=== PATIENT | female | born 1955 | race Caucasian/White ===

== ENCOUNTER 2023-07-06 10:09 | Inpatient (IN) | payer MEDICARE, OTHER ==
[~2023-07-06] VITALS: Ht 154.9 cm; Wt 67.6 kg
[2023-07-06] VITALS (8 sets, daily range): BP systolic 124–145; BP diastolic 61–72; TEMP 97–97.5; O2SAT 94–96
[~2023-07-06 10:09] MED LIST: LIDOCAINE 2% JEL 5 ML TUBE MC ONE
[2023-07-06] MEDS ORDERED: CLON0.5T4 PO (10:31)
[2023-07-06] MEDS ORDERED: OXYMETAZOLINE HCL NASAL SPRAY 30 ML BOTTLE NS ONE (11:21)
[2023-07-06] MEDS ORDERED: LIDOCAINE 2%-EPI 1:100,000 30 ML VIAL ONE (11:21)
[2023-07-06] MEDS ORDERED: dexaMETHasone SOD PHOSPHATE 10 MG/ML VIAL ONE (11:21)
[2023-07-06] MEDS ORDERED: VANCOMYCIN 1 GM VIAL ONE (11:22)
[2023-07-06] MEDS ORDERED: ROCURONIUM BROMIDE 50 MG/5 ML ONE ×2 (11:32→12:40)
[2023-07-06] MEDS ORDERED: FAMOTIDINE/PF INJ 20 MG/2 ML VIAL IV ONE (11:32)
[2023-07-06] MEDS ORDERED: FENTANYL PF 100MCG/2ML AMPUL ONE (11:32)
[2023-07-06] MEDS ORDERED: GLYCOPYRROLATE 0.2 MG/ML VIAL ONE (11:32)
[2023-07-06] MEDS ORDERED: MIDAZOLAM HCL 2 MG/2ML VIAL ONE (11:42)
[2023-07-06] MEDS ORDERED: IV NS 0.9% 1,000 ML IV PRN (15:00)
[2023-07-06] MEDS ORDERED: ACETAMINOPHEN 325 MG TABLET PO PRN (15:00)
[2023-07-06] MEDS ORDERED: ONDANSETRON HCL/PF 4 MG/2 ML VIAL IV PRN ×2 (15:00→15:30)
[2023-07-06] MEDS: HYDROMORPHONE 1 MG/1 ML DISP.SYRIN IV PRN ×2 (16:33→20:16)
[2023-07-07] MEDS: VANCOMYCIN 1 GM in IV D5W 250ml IV SCH ×2 (00:14→11:32)
[2023-07-07] MEDS: HYDROMORPHONE 1 MG/1 ML DISP.SYRIN IV PRN ×3 (02:11→14:01)
[2023-07-07 08:00] VITALS: BP 119/76; TEMP 97.9; O2SAT 97
[2023-07-07] MEDS ORDERED: clonazePAM 0.5 MG TABLET PO SCH (09:00)
[2023-07-07 10:51] LABS: CALCIUM, SERUM 8.7 mg/dL (8.5-10.1); POTASSIUM 3.9 mmol/L (3.5-5.1)
[2023-07-07 11:44] LABS: HEMATOCRIT 37 % (33-45); HEMOGLOBIN 11.8 g/dL (11.5-14.8); LYMPHOCYTES # (AUTO) 0.8 K/uL (0.8-4.8); LYMPHOCYTES % (AUTO) 5.8 % (20.0-44.0); MEAN CORPUSCULAR HEMOGLOBIN 24 PG (26.0-33.0); MEAN CORPUSCULAR HGB CONC 32 g/dl (31.0-36.0); MEAN CORPUSCULAR VOLUME 75 fL (82-100); MONOCYTES # (AUTO) 0.7 K/uL (0.1-1.30); MONOCYTES % (AUTO) 5.1 % (2.0-12.0); NEUTROPHILS # (AUTO) 12.4 K/uL (1.8-8.9); NEUTROPHILS % (AUTO) 89.1 % (43.0-81.0); PLATELET COUNT (AUTO) 259 K/uL (150-450); RED BLOOD CELL COUNT(AUTO) 4.95 MIL/uL (4.0-5.2); RED CELL DISTRIBUTION WIDTH 15.6 % (11.5-15.0); WHITE BLOOD COUNT (AUTO) 13.9 K/uL (4.3-11.0)
[2023-07-07 16:00] VITALS: BP 119/76; TEMP 97.9; O2SAT 97
== END 2023-07-07 19:00 | disposition home or self-care (01) | DRG 908 ==
LOC: EDBD → DS 10:09 → MED 10:10
PROVIDERS: ADMIT Nurse Practitioner Family; ATTEND Nurse Practitioner Family
PROC: 0NBR0ZX Excision of Maxilla, Open Approach, Diagnostic (ICD-10-PCS; principal; 2023-07-07)
PROC: 0NSR04Z Reposition Maxilla with Internal Fixation Device, Open Approach (ICD-10-PCS; 2023-07-07)
PROC: 0NPW04Z Removal of Internal Fixation Device from Facial Bone, Open Approach (ICD-10-PCS; 2023-07-07)
PROC: 0NUR07Z Supplement Maxilla with Autologous Tissue Substitute, Open Approach (ICD-10-PCS; 2023-07-07)
PROC: 0NSV04Z Reposition Left Mandible with Internal Fixation Device, Open Approach (ICD-10-PCS; 2023-07-07)
PROC: 0NUV07Z Supplement Left Mandible with Autologous Tissue Substitute, Open Approach (ICD-10-PCS; 2023-07-07)
DX: T86.831 Bone graft failure (principal); S02.40DK Maxillary fracture, left side, subsequent encounter for fracture with nonunion; T84.59XA Infection and inflammatory reaction due to other internal joint prosthesis, initial encounter; S02.609K Fracture of mandible, unspecified, subsequent encounter for fracture with nonunion; J32.0 Chronic maxillary sinusitis; Z79.899 Other long term (current) drug therapy; F41.9 Anxiety disorder, unspecified; R79.89 Other specified abnormal findings of blood chemistry; E66.9 Obesity, unspecified; Z68.28 Body mass index [BMI] 28.0-28.9, adult; Y83.8 Other surgical procedures as the cause of abnormal reaction of the patient, or of later complication, without mention of misadventure at the time of the procedure; Y92.009 Unspecified place in unspecified non-institutional (private) residence as the place of occurrence of the external cause; X58.XXXD Exposure to other specified factors, subsequent encounter
CPT/HCPCS: 36415; 80048-TC; 85025-TC; 87081-TC; A4223; C1713; G0378; J1100; J1170; J2250; J2405; J2704; J2765; J3010; J3370; J3490; J7030; J7060